=== PATIENT | male | born 1960 | race Caucasian/White ===

== ENCOUNTER 2022-09-29 13:47 | Emergency (ER) | payer OTHER ==
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
[2022-09-29 14:50] LABS: Absolute Neutrophil Ct (ANC) 7.09 x10^3/uL (1.4-6.9); BASOPHIL % 0.4 % (0.0-0.4); Basophil (Absolute #) 0.04 x10^3/uL (0-0.4); Eosinophil % 0.6 % (0.00-5.0); Eosinophil (Absolute #) 0.06 x10^3/uL (0-0.5); Hematocrit 38.7 % (42-50); Hemoglobin 13.1 g/dL (12.5-18.0); IMMATURE GRAN # 0.05 x10^3u/L (0.00-0.03); IMMATURE GRAN % 0.5 % (0.00-0.4); Lymphocyte (Absolute #) 1.86 x10^3/uL (1.0-4.6); Lymphocytes % 19.1 % (24.0-44.0); Mean Cell Volume 87.4 fL (78-100); Mean Corpuscular Hemoglobin 29.6 pg (26-32); Mean Corpuscular Hgb Concent. 33.9 g/dL (32-36); Mean Platelet Volume 8.7 fL (7.5-11.0); Monocyte (Absolute #) 0.64 x10^3/uL (0.0-1.3); Monocytes % 6.6 % (0.0-12.0); Neutrophil % 72.8 % (36.0-66.0); Platelet Count 261 x10^3/uL (150-450); Red Blood Count 4.43 x10^6/uL (4.1-5.6); Red Cell Distribution Width 12.6 % (11.5-14.0); White Blood Count 9.7 x10^3/uL (4.0-10.5)
[2022-09-29 15:04] LABS: INR 0.96 (0.8-3.0); PROTIME 10.5 SECONDS (9.4-12.5)
[2022-09-29 15:13] LABS: ALKALINE PHOSPHATASE 68 U/L (38-126); ANION GAP 13.9 MEQ/L (5-15); BLOOD UREA NITROGEN 30 mg/dL (9-20); CHLORIDE 104 mmol/L (98-107); Calcium 9.3 mg/dL (8.4-10.2); Carbon Dioxide 28 mmol/L (22-30); EST GLOMERULAR FILTRATION RATE > 60.0 ML/MIN; Glucose 129 mg/dL (74-106); Potassium 4.1 mmol/L (3.5-5.1); SGOT/AST 22 U/L (17-59); SGPT/ALT 24 U/L (0-50); SODIUM 142 mmol/L (137-145); Total Protein 7.2 g/dL (6.3-8.2)
--- NOTE | 2022-09-29 15:15 | XRAY ---
CLINICAL HISTORY:stroke like symptoms COMPARISON:None. TECHNIQUES:Contiguous axial imaages of CT head are obtained from the skull To the vertex without intravenous contrast. Reformatted images were performed. FINDINGS: There is a hypodense (Mean CT attenuation value of +14 HU) lesion seen in the krishna measuring 9.2 x 8.2 mm in size. Chronic focal infarct right frontol lobe white matter adjacent to right lateral ventricle. Chronic small vessel ischemic changes are seen in the periventricular white matter of both frontal lobes. No evidence of acute parenchymal hemorrhage or mass. Normal ventricular system. No abnormal extra-axial fluid collection is present. The midbrain, medulla and cerebellum is unremarkable. The skull base and calvarium are intact. There is mild cortical thickening in the ethmoid sinuses. IMPRESSION: Hypodense [mean CT value of +14 HU] Lesion in the krishna measuring 9.2 x 8.2 mm. The imaging appearance looks like that of a subacute or chronic infarct. For further confirmation MRI with diffusion-weighted imaging is advised. Note: Early changes of the stroke may not be detected on a CT scan. Recommendation: Follow-up as clinically indicated. Electronically Signed by: Jelly Madera MD. (09/29/2022 14:05:11 HEAD OF MOBILE)
[2022-09-29] MEDS ORDERED: BABY ASPIRIN 81 MG CHEW PO ONE (15:28)
[2022-09-29] MEDS ORDERED: BABY ASPIRIN 81 MG CHEW ONE (15:44)
[2022-09-29 16:18] LABS: Appearance Clear (Clear); Bacteria None Seen /HPF (None Seen); Bilirubin Negative (Negative); Blood Trace (Negative); Epithelial Cells None Seen /HPF (None Seen); Glucose, Urine 100 mg/dL (Negative); Ketones Negative (Negative); Leukocyte Esterase Negative (Negative); Nitrite Negative (Negative); Ph 5.5 (4.6-8.0); Protein,Urine Dip 300 (Negative); WBC 0-2 /HPF (0-5)
[2022-09-29 16:27] LABS: ADD URINE CULTURE? NO (NO)
--- NOTE | 2022-09-29 17:33 | XRAY ---
Indication: Strokelike symptoms. LVO. Conventional contrast enhanced CTA head performed using 80 cc Isovue 370 contrast. 2-D sagittal and coronal reformatted images obtained. Additional 3-D reformatted images obtained using a separate workstation. Comparison: None Distal internal carotid arteries are bilaterally symmetric with minimal scattered arteriosclerotic ossifications in both parasellar segments. No critical stenosis, obstruction, or AV malformation. Normal carotid terminus with normal branching A1 and M1 segments bilaterally. More distal anterior cerebral and middle cerebral arteries are normal in CTA appearance bilaterally. Posterior circulation demonstrates normal CTA appearance to the basilar, left/right posterior cerebral, left/right superior cerebellar, and left/right anterior-inferior cerebellar arteries. Venous sinuses/drainage unremarkable. No abnormal enhancing intra or extra-axial mass. Impression: Minimal arteriosclerotic disease in both parasellar internal carotid arteries without critical stenosis/obstruction. Remaining CTA head with contrast exam is normal.
--- NOTE | 2022-09-29 17:39 | XRAY ---
Indication: Strokelike symptoms. LVO. Conventional contrast enhanced CTA neck performed using 80 cc Isovue 370 contrast. 2-D sagittal and coronal reformatted images obtained. Additional 3-D reformatted images obtained using a separate workstation. Comparison: None Aortic arch demonstrates normal course and caliber without aneurysm/dissection. Widely patent branch right brachiocephalic, left common carotid, and left subclavian arteries. Common carotid, carotid bulb, internal carotid, and external carotid arteries are normal in CTA appearance bilaterally. Vertebral arteries are normal in course and caliber with the left vertebral artery dominant in size. No critical stenosis, obstruction, or AV malformation. Visualized soft tissues are unremarkable. Osseous structures intact with osteopenia and moderate C5-C7 degenerative changes. Impression: Normal CTA neck with contrast exam. Incidental osteopenia and C5-C7 degenerative changes.
[2022-09-29 18:17] VITALS: BP 162/92; PULSE 62
[2022-09-29 19:24] VITALS: O2SAT 99
== END 2022-09-29 18:19 | disposition short-term general hospital (02) ==
LOC: ED 13:47
DX: I63.9 Cerebral infarction, unspecified (principal); G81.94 Hemiplegia, unspecified affecting left nondominant side; I10 Essential (primary) hypertension; E11.9 Type 2 diabetes mellitus without complications
CPT/HCPCS: 36000; 36415; 70450; 70496; 70498; 80053; 81001; 84484; 85025; 85610; 93005; 99284; 99291; A9270-GY